=== PATIENT | male | born 1990 | race Caucasian/White ===

== ENCOUNTER 2017-01-19 12:01 | Emergency (ER) | payer MEDICARE, MEDICAID ==
[~2017-01-19] VITALS: Ht 185.4 cm; Wt 72.6 kg
--- NOTE | 2017-01-19 12:13 | NUR ---
PT IS IN ROOM #2A. DR GALVAN EVALUATED THE PT.
--- NOTE | 2017-01-19 13:44 | NUR ---
PT WAS D/C TO HOME. AFTER ER MD EVALUATION. CRUTCHES TRAINING WAS DONE. GAIT IS STABLE. D/C INSTRUCTIONS GIVEN TO THE PT.
[2017-01-19 13:45] VITALS: BP 135/75
[2017-01-19] MEDS ORDERED: IBUPROFEN 600 MG TABLET PO ONE (13:45)
[2017-01-19] MEDS ORDERED: IBUPROFEN 600 MG TABLET ONE (13:50)
== END 2017-01-19 13:46 | disposition home or self-care (01) ==
LOC: ER 12:01
DX: S93.402A Sprain of unspecified ligament of left ankle, initial encounter (principal); X58.XXXA Exposure to other specified factors, initial encounter; Y93.89 Activity, other specified; Y99.8 Other external cause status; Y92.89 Other specified places as the place of occurrence of the external cause
CPT/HCPCS: 73610; 99284; A4663